=== PATIENT | male | born 1950 | race American Indian/Alaskan Native ===

== ENCOUNTER 2017-05-02 18:33 | Emergency (ER) | payer OTHER ==
[2017-05-02 18:34] VITALS: BMI 34.9
[2017-05-02 18:44] VITALS: RESP 18; TEMP 97.9; O2SAT 100
--- NOTE | 2017-05-02 19:17 | C.PDOC ---
History Of Present Illness 66 year old male presents to the emergency department with complaints of sudden onset of dizziness he describes as "room spinning" assoc w nausea while shopping prior to arrival that last approximately 15 minutes. Patient states symptoms have resolved upon arrival and notes a history of HTN, diabetes, and renal cancer. Patient is compliant with medications and denies SOB, vomiting, vision changes, or physical complaints. he says two of his family members have also recently been dx with vertigo for similar sx after they all went [place] recently. Time Seen by Provider: 05/02/17 18:41 Chief Complaint (Nursing): Dizziness/Lightheaded History Per: Patient History/Exam Limitations: no limitations Onset/Duration Of Symptoms: Mins Current Symptoms Are (Timing): Better Activity At Onset Of Symptoms: Standing Seizure Or Post-ictal Symptoms: None Fall Associated With With Symptoms: No Recent travel outside of the [place]: No Past Medical History Reviewed: Historical Data, Nursing Documentation, Vital Signs Vital Signs: Last Vital Signs Temp 97.9 F 05/02/17 18:44 Pulse 73 05/02/17 20:03 Resp 18 05/02/17 20:03 BP 164/86 H 05/02/17 20:03 Pulse Ox 100 05/07/17 19:39 - Medical History PMH: Diabetes, HTN, Malignancy (LEFT KIDNEY CA) Denies: Depression - [facility] Procedures INJECT/INFUSE NEC (06/28/14) TETANUS TOXOID ADMINIST (05/15/14) Family History: States: Other Other Family History: non-contributory. - Social History Hx Tobacco Use: No Hx Alcohol Use: No Hx Substance Use: No - Immunization History Hx Tetanus Toxoid Vaccination: No Hx Influenza Vaccination: Yes Hx Pneumococcal Vaccination: No Review Of Systems Except As Marked, All Systems Reviewed And Found Negative. Constitutional: Positive for: Sweats Gastrointestinal: Positive for: Nausea Neurological: Positive for: Dizziness Physical Exam - Physical Exam Appears: Non-toxic, No Acute Distress Skin: Warm, Dry, No Diaphoretic Head: Atraumatic Eye(s): bilateral: Normal Inspection, PERRL, EOMI Ear(s): Bilateral: Normal (tms wnl) Oral Mucosa: Moist Throat: Normal, No Erythema, No Exudate Neck: Supple Chest: Symmetrical, No Deformity Cardiovascular: Rhythm Regular (NSR 59, incomplete left bundle branch block) Respiratory: Normal Breath Sounds, No Rhonchi, No Wheezing Extremity: Normal ROM, No Tenderness, No Calf Tenderness, Capillary Refill ( good capillary refill, less than 2 seconds ) Neurological/Psych: Oriented x3, Normal Speech, Normal Cognition, Normal Cranial Nerves, Normal Motor, Normal Sensation, Normal Reflexes, Other ( Negative Romberg) Gait: Steady ED Course And Treatment O2 Sat by Pulse Oximetry: 100 (room air ) - CT Scan/US CT Head Without Intravenous Contrast Other Rad Studies (CT/US): Read By Radiologist, Radiology Report Reviewed CT/US Interpretation: FINDINGS: Brain: Benign bilateral globus pallidus calcifications are present. There is mild diffuse cerebral. atrophy present, consistent with this patient's age. The brain is otherwise unremarkable. Normal. turner-white matter differentiation is present, without acute hemorrhage , or mass. Ventricles: Unremarkable. No ventriculomegaly. Bones/joints: Unremarkable. No acute fracture. Soft tissues: Unremarkable. Sinuses: Unremarkable as visualized. No acute sinusitis. Mastoid air cells: Unremarkable as visualized. No mastoid effusion. IMPRESSION: No acute intracranial process is seen. No signs of bleed, mass, or infarction. Medical Decision Making Medical Decision Making: pt remains asymptomatic at this time with normal neuro exam. follow up and return prec advised. Disposition - Disposition Disposition: HOME/ ROUTINE Disposition Time: 19:54 Condition: GOOD Additional Instructions: Please follow up with your doctor tomorrow. Return to the ER for any worsening symptoms, headache, numbness, weakness, difficulty speaking or walking, or for any other concerns. Prescriptions: Meclizine [Meclizine*] 25 mg PO Q8H PRN #20 tab PRN Reason: Vertigo Instructions: Vertigo (ED) Forms: General Discharge Instructions, [facility] (Chinese) - Clinical Impression Clinical Impression: Vertigo - Scribe Statement The provider has reviewed the documentation as recorded by the Scribe Karla Oglesby All medical record entries made by the Scribe were at my direction and personally dictated by me. I have reviewed the chart and agree that the record accurately reflects my personal performance of the history, physical exam, medical decision making, and the department course for this patient. I have also personally directed, reviewed, and agree with the discharge instructions and disposition.
[2017-05-02 20:04] VITALS: BP 164/86; PULSE 73
--- NOTE | 2017-05-03 08:33 | CT ---
PROCEDURE: CT HEAD WITHOUT CONTRAST. HISTORY: dizzy COMPARISON: None available. TECHNIQUE: Axial computed tomography images were obtained through the head/brain without intravenous contrast. Radiation dose: Total exam DLP = 937.91 mGy-cm. This CT exam was performed using one or more of the following dose reduction techniques: Automated exposure control, adjustment of the mA and/or kV according to patient size, and/or use of iterative reconstruction technique. FINDINGS: HEMORRHAGE: No intracranial hemorrhage. BRAIN: No mass effect or edema. Minimal diffuse age-appropriate cerebral atrophy. No evidence of acute infarct. VENTRICLES: Unremarkable. No hydrocephalus. CALVARIUM: Unremarkable. PARANASAL SINUSES: Unremarkable as visualized. No significant inflammatory changes. MASTOID AIR CELLS: Unremarkable as visualized. No inflammatory changes. OTHER FINDINGS: None. IMPRESSION: No intracranial mass, hemorrhage or evidence of acute infarct. Minimal age-appropriate diffuse atrophy. Preliminary interpretation of this examination was reported by [facility] at 7:51 p.m. on 05/02/2017. There is concurrence of this report with the preliminary interpretation.
--- NOTE | 2017-05-03 13:46 | CARD ---
APPROVED REPORT EKG Measurement Heart [id number] <Conclusion> Sinus bradycardia Incomplete left bundle branch block Nonspecific T wave abnormality Abnormal ECG
== END 2017-05-02 20:04 | disposition home or self-care (01) ==
LOC: C.ER 18:33
DX: R42 Dizziness and giddiness (principal); E11.9 Type 2 diabetes mellitus without complications; I10 Essential (primary) hypertension; Z85.528 Personal history of other malignant neoplasm of kidney